=== PATIENT | male | born 1980 | race Caucasian/White ===

== ENCOUNTER 2017-08-29 01:30 | Inpatient (IN) | payer OTHER ==
[~2017-08-29] VITALS: Ht 170.2 cm; Wt 81.6 kg
[2017-08-29 01:35] VITALS: BP 125/83
[2017-08-29] MEDS ORDERED: ALBUTEROL SULFATE/IPRATROPIU 3 ML SOL IH ONE ×4 (01:40→02:05)
--- NOTE | 2017-08-29 01:40 | NUR ---
PT. AMBULATED TO ER BED 12, ER MD WAS NOTIFIED FOR PT. CONDITION.
--- NOTE | 2017-08-29 01:45 | NUR ---
PATIENT IS A 37 Y/O MALE WHO PRESENTS TO THE ED C/O SOB. PT STATES, "THIS HAS BEEN AN ONGOING PROBLEM AND I CAN'T REALLY BREATHE." PT REPORTS H/O ---CHRONIC BRONCHITIS/ASTHMA. PT REPORTS 8/10 PRESSURE CHEST PAIN THAT DOES NOT RADIATE. PT REPORTS SOB, NOTED TRIPOD WHEEZING WITH COUGHING AND WHEEZING BILATERALLY, DENIES N/V/D. PT AAOX4, RR EVEN/UNLABORED, O2 SAT 94% ON 4L NC. PT REPOSITIONED FOR COMFORT, BED IN LOWEST POSITION. ER MD DR. BRUNER NOTIFIED. WILL CONTINUE TO MONITOR.
--- NOTE | 2017-08-29 01:53 | NUR ---
Respiratory Therapist at bedside for respiratory intervention.
[2017-08-29] MEDS ORDERED: methylPREDNISolone SS 125 MG/2 ML VIAL ONE (02:04)
[2017-08-29] MEDS ORDERED: MAG SULF 2000 MG/WATER PREMIX 50 ML IV ONE ×2 (02:04→02:05)
[2017-08-29] MEDS ORDERED: methylPREDNISolone SS 125 MG in WATER STERILE 2 ML IV ONE (02:05)
[2017-08-29 02:25] LABS: HEMOGLOBIN 16.3 g/dL (12.0-18.0); RED BLOOD CELL COUNT(AUTO) 5.57 MIL/uL (4.20-6.10); WHITE BLOOD COUNT (AUTO) 10.5 K/uL (4.8-10.8)
[2017-08-29 02:26] LABS: HEMATOCRIT 49.3 % (36-52); MEAN CORPUSCULAR HEMOGLOBIN 29 pg (27-31); MEAN CORPUSCULAR HGB CONC 33 g/dL (33-37); MEAN CORPUSCULAR VOLUME 88 fL (80-94); PLATELET COUNT (AUTO) 383 K/uL (140-450)
[2017-08-29 02:30] LABS: ANION GAP 13.4 (8-16); CARBON DIOXIDE 24.5 mmol/L (21-32); CREATININE 0.7 mg/dL (0.7-1.3); POTASSIUM 3.9 mmol/L (3.5-5.1)
[2017-08-29 02:34] LABS: TOTAL BILIRUBIN 0.7 mg/dL (0.0-1.0)
[2017-08-29 02:35] LABS: ALBUMIN 4.1 g/dL (3.4-5.0)
--- NOTE | 2017-08-29 02:36 | NUR ---
XRAY ACADEMIC AFFAIRS VICE PRESIDENT AT BEDSIDE.
[2017-08-29] MEDS ORDERED: ALBUTEROL 0.083% 2.5 MG/3 ML NEBU INH ONE ×2 (03:00→03:12)
[2017-08-29] MEDS ORDERED: ALBU0.0912 INH (04:04)
[2017-08-29] MEDS ORDERED: MONT10TA35 PO (04:04)
[2017-08-29] MEDS ORDERED: PHE25S PO (04:04)
[2017-08-29] MEDS ORDERED: LEVO750T2 PO (04:04)
[2017-08-29] MEDS ORDERED: ONDANSETRON 4 MG/2 ML VIAL IVP PRN (04:10)
[2017-08-29] MEDS ORDERED: HYDROcodone/APAP 5/325 MG 1 TAB TAB PO PRN ×2 (04:10)
[2017-08-29] MEDS ORDERED: ACETAMINOPHEN 325 MG TAB PO PRN (04:10)
--- NOTE | 2017-08-29 05:00 | NUR ---
RECEIVED 37 YEAR OLD MALE TRANSFERRED FROM ER VIA [facility] WITH 2 ER STAFF. PATIENT AWAKE ALERT AND ORIENTED. ON O2 @ 4L/MIN VIA NASAL CANNULA, RESPIRATIONS EVEN AND UNLABORED. ADMISSION ASSESSMENT INITIATED. ORIENTED ON BEDROOM SET UP PER PROTOCOL. SAFETY PRECAUTIONS IN PLACE. WILL CONTINUE TO MONITOR.
--- NOTE | 2017-08-29 05:00 | NUR ---
Patient will be admitted to care of DR. LAST. Admited to TELE. Will go to room ICU3 FOR TELE CONVENIENCE. Belongings list completed. Report to KAYCE BARNHART.
--- NOTE | 2017-08-29 07:25 | NUR ---
REPORT RECEIVED FROM SUPERVISOR BROODER FARM NURSE. PT IS ASLEEP, EASY TO WAKE UP. ALERT AND ORIENTED X 4. ABLE TO MAKE NEEDS KNOWN. NORMAL SINUS RHYTHM ON MONITOR. PT IS ON O2 AT 4 LPM/NC, BILATERAL WHEEZING AUSCULTATED. NO SOB OR COUGH NOTED AT THIS TIME. RESPIRATION EVEN AND UNLABORED. DENIES PAIN. ABDOMEN SOFT, NONTENDER, NONDISTENDED AND BOWEL SOUNDS PRESENT. PERIPHERAL IV G20 TO LEFT HAND PATENT AND INTACT, SALINE LOCKED. SKIN INTACT, DRY AND WARM TO TOUCH. BED IN LOWEST POSITION AND CALL LIGHT WITHIN REACH. NEEDS WELL ATTENDED. WILL CONTINUE TO MONITOR.
[2017-08-29 08:00] VITALS: BP 127/77
[2017-08-29] MEDS ORDERED: predniSONE 20 MG TAB ONE (08:24)
[2017-08-29] MEDS ORDERED: MONTELUKAST SODIUM 10 MG TAB ONE (08:25)
[2017-08-29] MEDS ORDERED: ENOXAPARIN 40 MG/0.4 ML SYR SUBQ ONE (08:27)
[2017-08-29] MEDS: MONTELUKAST SODIUM 10 MG TAB PO SCH (08:39)
--- NOTE | 2017-08-29 08:50 | NUR ---
PATIENT HAS BEEN SCREENED AND CATEGORIZED LOW NUTRITION RISK. PATIENT WILL BE SEEN WITHIN 7 DAYS OF ADMISSION. 09/04/[address]
--- NOTE | 2017-08-29 08:50 | NUR ---
PT TRANSFERRED TO TELEMETRY ROOM 105A. REPORT GIVEN TO FREDERIC RN AT BEDSIDE. PT IS IN STABLE CONDITION.
--- NOTE | 2017-08-29 08:51 | NUR ---
REPORT RECEIVED FROM [employer] INTERFACE DEVELOPER, ADAM, AT BEDSIDE FOR CONTINUITY OF CARE. PATIENT ARRIVED BY BED, AND AMBULATED INTO ROOM WITH STEADY GAIT. IV L HAND 20G SL. PATIENT ON O2 4L NC. PATIENT AMBULATED TO BATHROOM. SKIN IS INTACT. VS WNL. SAFETY PRECAUTIONS IN PLACE, BED ON LOWEST SETTING, CALL LIGHT WITHIN REACH. WILL CONTINUE TO MONITOR PATIENT.
[2017-08-29] MEDS: PROMETHAZINE 25 MG SUPP RC SCH ×2 (09:00→21:00)
[2017-08-29] MEDS: ENOXAPARIN 40 MG/0.4 ML SYR SUBQ SCH (09:00)
[2017-08-29] MEDS ORDERED: predniSONE 20 MG TAB PO ONE (09:00)
[2017-08-29] MEDS: guaiFENesin DM 200/20 MG-10 ML 10 ML UDC PO PRN (11:55)
--- NOTE | 2017-08-29 11:55 | NUR ---
PATIENT COUGHING, REQUESTED SOMETHING FOR IT. MD NOTIFIED, PER MD ORDER, ROBITUSSIN GIVEN PRN. NO SIGNS OF DISTRESS OR SOB NOTED, PATIENT DENIES PAIN. SAFETY PRECAUTIONS IN PLACE, CALL LIGHT WITHIN REACH. WILL CONTINUE TO MONITOR PATIENT.
[2017-08-29 12:00] VITALS: BP 136/79
[2017-08-29] MEDS: ALBUTEROL SULFATE/IPRATROPIU 3 ML SOL INH PRN ×2 (14:04→20:20)
--- NOTE | 2017-08-29 14:40 | NUR ---
PATIENT RESTING IN BED, NO SIGNS OF DISTRESS OR SOB NOTED. SAFETY PRECAUTIONS IN PLACE, CALL LIGHT WITHIN REACH, WILL CONTINUE TO MONITOR PATIENT.
--- NOTE | 2017-08-29 15:41 | NUR ---
On attempt to contact Patient's family member, /friend, and Next of Kin as listed on patient's chart I call Tara Sapp at with No responses to several attempts. I left multiple voicemail messages to return a call as soon as possible.
--- NOTE | 2017-08-29 15:47 | NUR ---
Due to several fail attempts to contact Patient's family, Friend/ Tara Sapp as listed on patients's chart. I call jhonny Jacques. and requested a Welfare Check for Mrs. Sapp to contact back [facility], case management social worker and provide patient information or other family members contact information. I Spoke to Karolina Dispatcher and she place needed visit to address listed on patient's chart to inform Mrs. Sapp of her needed call to [facility] as soon as possible. Karolina form Jhonny Jacques Stated they will call with results of visit to the [facility] and I provide my number and ended call.
[2017-08-29 16:00] VITALS: BP 130/70
--- NOTE | 2017-08-29 16:01 | NUR ---
CM NOTE INITIAL REVIEW FAXED TO [facility] (FAX# [phone], ATTN: MAXIME #[phone]) AND [facility] (FAX# [phone], ATTN: SAUL #[phone])
--- NOTE | 2017-08-29 16:20 | NUR ---
PATIENT RESTING IN BED. NO SIGNS OF DISTRESS OR SOB NOTED. PATIENT DENIES PAIN. SAFETY PRECAUTIONS IN PLACE, CALL LIGHT WITHIN REACH. WILL CONTINUE TO MONITOR PATIENT.
--- NOTE | 2017-08-29 19:22 | NUR ---
GAVE REPORT TO TYPEWRITER MECHANIC RN AT BEDSIDE FOR CONTINUITY OF CARE. PATIENT IN STABLE CONDITION.
--- NOTE | 2017-08-29 19:23 | NUR ---
RECEIVED BEDSIDE REPORT FROM DAY SHIFT NURSE FREDERIC RN, PT STABLE, NO DISTRESS NOTED, IV TO L HAND 20G SL, PATENT, ON 2LPM O2 VIA NC, NO SOB, INITIAL ASSESSMENT DONE, ALL SAFETY PRECAUTION MET, CALL LIGHT WITHIN REACH, BY BEDSIDE, WILL CONTINUE TO MONITOR.
[2017-08-29 20:00] VITALS: BP 141/81
[2017-08-29] MEDS: ALBUTEROL 0.083% 2.5 MG/3 ML NEBU IH PRN (20:22)
--- NOTE | 2017-08-29 21:27 | NUR ---
PT C/O HEADACHE 03/28, PAIN MEDICATION GIVEN, PT TOLERATED WELL, NO DISTRESS NOTED, CALL LIGHT WITHIN REACH, WILL CONTINUE TO MONITOR.
[2017-08-30] VITALS: BP 138/82
--- NOTE | 2017-08-30 00:10 | NUR ---
CHECKED ON PT, PT SLEEPING, EASY TO AROUSE, NO DISTRESS NOTED, CALL LIGHT WITHIN REACH, WILL CONTINUE TO MONITOR.
--- NOTE | 2017-08-30 02:25 | NUR ---
CHECKED ON PT, PT STABLE, SLEEPING, NO DISTRESS NOTED, CALL LIGHT WITHIN REACH, WILL CONTINUE TO MONITOR.
[2017-08-30 04:00] VITALS: BP 131/69
[2017-08-30] MEDS: guaiFENesin DM 200/20 MG-10 ML 10 ML UDC PO PRN (06:12)
--- NOTE | 2017-08-30 06:12 | NUR ---
PT C/O OF COUGHING, REQUESTED COUGH MEDICATION, MEDICATION GIVEN, PT TOLERATED WELL, CALL LIGHT WITHIN REACH, WILL CONTINUE TO MONITOR.
--- NOTE | 2017-08-30 07:20 | NUR ---
GAVE BEDSIDE REPORT TO DAY SHIFT NURSE FREDERIC RN, ENDORSED PLAN OF CARE, PT STABLE, NO DISTRESS NOTED, CALL LIGHT WITHIN REACH.
--- NOTE | 2017-08-30 07:21 | NUR ---
RECEIVED BEDSIDE REPORT FROM ENGINEERING OFFICER NURSE AT BEDSIDE FOR CONTINUITY OF CARE. PT STABLE, NO DISTRESS NOTED, IV TO L HAND 20G SL, PATENT, ON 2L O2 VIA NC, NO SOB. UPDATED PATIENT WITH PLAN OF CARE FOR THE DAY, PATIENT VERBALIZED UNDERSTANDING. PATIENT REQUESTED BREATHING TREATMENT, RT WAS CALLED. ALL SAFETY PRECAUTION MET, CALL LIGHT WITHIN REACH, WILL CONTINUE TO MONITOR PATIENT.
[2017-08-30] MEDS: ALBUTEROL SULFATE/IPRATROPIU 3 ML SOL INH PRN ×2 (07:26→15:02)
[2017-08-30] MEDS: ALBUTEROL 0.083% 2.5 MG/3 ML NEBU IH PRN (07:26)
[2017-08-30 07:32] LABS: BASOPHILS # (AUTO) 0.5 K/uL (0.00-0.22); EOSINOPHILS # (AUTO) 0.2 K/uL (0-0.4); EOSINOPHILS % (AUTO) 1.9 % (0.0-4.0); HEMATOCRIT 45.4 % (36-52); HEMOGLOBIN 15.5 g/dL (12.0-18.0); LYMPHOCYTES # (AUTO) 2.6 K/uL (2.0-11.5); LYMPHOCYTES % (AUTO) 22.2 % (20.5-51.1); MEAN CORPUSCULAR HEMOGLOBIN 30 pg (27-31); MEAN CORPUSCULAR HGB CONC 34 g/dL (33-37); MEAN CORPUSCULAR VOLUME 88 fL (80-94); MONOCYTES % (AUTO) 8.7 % (1.7-9.3); NEUTROPHILS # (AUTO) 7.3 K/uL (1.8-7.7); NEUTROPHILS % (AUTO) 63.2 % (42.2-75.2); PLATELET COUNT (AUTO) 361 K/uL (140-450); RED BLOOD CELL COUNT(AUTO) 5.14 MIL/uL (4.20-6.10); RED CELL DISTRIBUTION WIDTH 11.9 % (11.6-13.7); WHITE BLOOD COUNT (AUTO) 11.6 K/uL (4.8-10.8)
[2017-08-30 07:55] LABS: ALBUMIN 3.8 g/dL (3.4-5.0); ANION GAP 14.7 (8-16); CARBON DIOXIDE 24.7 mmol/L (21-32); CREATININE 0.8 mg/dL (0.7-1.3); MAGNESIUM 2.2 mg/dL (1.8-2.4); POTASSIUM 3.4 mmol/L (3.5-5.1); TOTAL BILIRUBIN 1.3 mg/dL (0.0-1.0)
[2017-08-30 08:00] VITALS: BP 123/92
[2017-08-30] MEDS: MONTELUKAST SODIUM 10 MG TAB PO SCH (08:21)
--- NOTE | 2017-08-30 08:24 | NUR ---
ADMINISTERED MORNING MEDICATIONS. PATIENT TOLERATED THEM WELL. PATIENT REFUSED LOVENOX AND PHENERGAN. UPDATED PATIENT WITH TODAY'S PLAN OF CARE, PATIENT VERBALIZED UNDERSTANDING. SAFETY PRECAUTIONS IN PLACE. CALL LIGHT WITHIN REACH. WILL CONTINUE TO MONITOR PATIENT.
[2017-08-30] MEDS: PROMETHAZINE 25 MG SUPP RC SCH (08:27)
[2017-08-30] MEDS: ENOXAPARIN 40 MG/0.4 ML SYR SUBQ SCH (08:27)
--- NOTE | 2017-08-30 08:45 | NUR ---
PER DR LAST'S ORDERS, PATIENT NOW ON REGULAR DIET. [facility] WAS CALLED FOR A LATE BREAKFAST TRAY FOR PATIENT.
[2017-08-30] MEDS ORDERED: predniSONE 20 MG TAB PO SCH (09:00)
[2017-08-30] MEDS ORDERED: POTASSIUM CHLORIDE 10 MEQ TABER PO SCH (09:00)
--- NOTE | 2017-08-30 11:45 | NUR ---
PER NUTRITION EDUCATOR, PATIENT'S HEART RATE IS 105. CHECKED ON PATIENT, , ZEINA, AT BEDSIDE, NO SIGNS OF DISTRESS OR SOB NOTED. PATIENT DENIES PAIN. SAFETY PRECAUTIONS IN PLACE, CALL LIGHT WITHIN REACH. WILL CONTINUE TO MONITOR PATIENT.
--- NOTE | 2017-08-30 11:55 | NUR ---
CONTACTED LIZET, BEAM DYER, ABOUT PATIENT'S , ZEINA, PHONE NUMBER: [phone], AND LEFT A MESSAGE. WANTED TO KNOW WHY SHE WAS BEING CONTACTED AND WHAT SHE COULD DO TO HELP.
[2017-08-30 12:00] VITALS: BP 121/68
[2017-08-30] MEDS ORDERED: FUROSEMIDE 20 MG/2 ML VIAL IVP SCH (14:00)
--- NOTE | 2017-08-30 14:03 | NUR ---
PER MD NEW ORDER, PATIENT GIVEN IVP LASIX. PATIENT TOLERATED IT WELL. SAFETY PRECAUTIONS IN PLACE, CALL LIGHT WITHIN REACH. WILL CONTINUE TO MONITOR PATIENT.
[2017-08-30] MEDS ORDERED: ALBU-74 IH (15:16)
[2017-08-30] MEDS ORDERED: FLUT1DSK2 IH ×2 (15:20→15:41)
[2017-08-30] MEDS ORDERED: AZIT250T11 PO (15:24)
[2017-08-30] MEDS ORDERED: METH4TAB1 PO (15:26)
[2017-08-30 16:00] VITALS: BP 129/75
--- NOTE | 2017-08-30 16:00 | NUR ---
DISCHARGE TEACHING GIVEN TO PATIENT. PATIENT VERBALIZED UNDERSTANDING. IV REMOVED, CANNULA INTACT. ID BANDS CUT. NO SIGNS OF DISTRESS OR SOB NOTED. SAFETY PRECAUTIONS IN PLACE. PATIENT WILL CHANGE AND WAIT FOR HIS TO COME.
--- NOTE | 2017-08-30 16:30 | NUR ---
PATIENT AMBULATED OFF THE FLOOR WITH RN, NASIR, AND HIS AND SON. PATIENT IN STABLE CONDITION.
--- NOTE | 2017-08-30 16:40 | NUR ---
FAXED CONCURRENT REVIEW TO [facility] [phone] PHONE MAXIME [phone] FAXED CONCURRENT REVIEW TO [place] [phone] PHONE [phone]
== END 2017-08-30 16:30 | disposition home or self-care (01) | DRG 282 ==
LOC: MED 01:30 → MIC 04:41 → MTU 08:51
PROVIDERS: ADMIT Hospitalist; ATTEND Hospitalist
DX: K85.90 Acute pancreatitis without necrosis or infection, unspecified (principal); J96.20 Acute and chronic respiratory failure, unspecified whether with hypoxia or hypercapnia; J45.901 Unspecified asthma with (acute) exacerbation; F41.9 Anxiety disorder, unspecified; J42 Unspecified chronic bronchitis; Z79.899 Other long term (current) drug therapy
CPT/HCPCS: 36415; 71045; 80053; 83605; 83690; 83735; 85025; 87081; 87804; 94640; 96365; 96366; 96375; 99285; J1650; J1940; J2550; J2930; J3475; J7512; J7613; J7620; Q0092